=== PATIENT | female | born 1950 | race Caucasian/White ===

== ENCOUNTER 2019-08-26 13:24 | Emergency (ER) | payer MEDICARE ==
--- NOTE | 2019-08-26 13:54 | ER Document Report ---
ED Fall - General Chief Complaint: Facial Injury Stated Complaint: FALL,BODY PAIN Time Seen by Provider: 08/26/19 13:54 Primary Care Provider: HUMA JACOBSON PA [Primary Care Provider] - Follow up as needed Mode of Arrival: Medic Information source: Patient Notes: 69-year-old woman presents to the emergency department with a history of a fall. Apparently tripped and fell forward injuring her face. She denies loss of consciousness or neck pain. She also denies any extremity pain. She is not on a blood thinner and denies dizziness or systemic symptoms. TRAVEL OUTSIDE OF THE [place] IN LAST 30 DAYS: No - Related data Allergies/Adverse Reactions: No Known Allergies Allergy (Unverified 08/26/19 14:38) Past Medical History - General Information source: Patient - Social History Smoking Status: Never Smoker Frequency of alcohol use: None Drug Abuse: None Family History: Reviewed & Not Pertinent Patient has suicidal ideation: No Patient has homicidal ideation: No GI Medical History: Reports: Hx Gastroesophageal Reflux Disease Psychiatric Medical History: Reports: Hx Depression Past Surgical History: Reports: Hx Breast Surgery - reduction, Hx Cholecystectomy, Hx Orthopedic Surgery - L leg jayleen, Hx Tonsillectomy Review of Systems - Review of Systems Notes: REVIEW OF SYSTEMS GENERAL: Negative for any nausea, vomiting, fevers, chills, or weight loss. NEUROLOGIC: Negative for any blurry vision, blind spots, double vision, facial asymmetry, dysphagia, dysarthria, hemiparesis, hemisensory deficits, vertigo, ataxia. HEENT: Negative for any head trauma, neck trauma, neck stiffness, photophobia, phonophobia, sinusitis, rhinitis. CARDIAC: Negative for any chest pain, dyspnea on exertion, paroxysmal nocturnal dyspnea, peripheral edema. PULMONARY: Negative for any shortness of breath, wheezing, COPD, or TB exposure. GASTROINTESTINAL: Negative for any abdominal pain, nausea, vomiting, bright red blood per rectum, melena. GENITOURINARY: Negative for any dysuria, hematuria, incontinence. INTEGUMENTARY: + Forehead abrasion, + nasal lac, + upper lip abrasion RHEUMATOLOGIC: Negative for any joint pains, photosensitive rashes, history of vasculitis or kidney problems. HEMATOLOGIC: Negative for any abnormal bruising, frequent infections or bleeding. Physical Exam - Vital signs Vitals: Temp Pulse Resp BP Pulse Ox 97.8 F 75 20 148/85 H 99 11/09/19 13:44 08/26/19 13:44 08/26/19 13:44 08/26/19 13:44 08/26/19 13:44 Interpretation: Normal - General General appearance: Appears well, Alert - HEENT Head: Abrasions - Forehead superficial abrasion with mild swelling Eyes: Normal Pupils: PERRL Nasal: Other - 2 cm V-shaped laceration to the nasal bridge. Mouth/Lips: Other - Superficial abrasion to the maxillary upper lip region. Epidermis only. - Respiratory Respiratory status: No respiratory distress Chest status: Nontender Breath sounds: Normal Chest palpation: Normal - Cardiovascular Rhythm: Regular Heart sounds: Normal auscultation Murmur: No - Abdominal Inspection: Normal Distension: No distension Bowel sounds: Normal Tenderness: Nontender Organomegaly: No organomegaly - Back Back: Normal, Nontender - Extremities General upper extremity: Normal inspection, Nontender, Normal color, Normal ROM, Normal temperature General lower extremity: Normal inspection, Nontender, Normal color, Normal ROM, Normal temperature, Normal weight bearing. No: Fritz's sign - Neurological Neuro grossly intact: Yes Cognition: Normal Orientation: AAOx4 Nayely Coma Scale Eye Opening: Spontaneous Nayely Coma Scale Verbal: Oriented Nayely Coma Scale Motor: Obeys Commands Nayely Coma Scale Total: 15 Speech: Normal Motor strength normal: LUE, RUE, LLE, RLE Sensory: Normal - Psychological Associated symptoms: Normal affect, Normal mood - Skin Skin Temperature: Warm Skin Moisture: Dry Skin Color: Normal Course - Vital Signs Vital signs: Temp Pulse Resp BP Pulse Ox 98.2 F 71 18 134/65 H 98 08/26/19 16:16 08/26/19 16:16 08/26/19 16:16 08/26/19 16:16 08/26/19 16:16 - Diagnostic Test Radiology reviewed: Image reviewed, Reports reviewed - CT facial bones noncontrast: Chip fracture on the nasal bone otherwise negative. Procedures - Laceration/Wound Repair Face Wound length (cm): 1 Wound's Depth, Shape: Superficial, Flap - 2 cm V-shaped flap on the nasal bridge, bleeding controlled, 1% lidocaine injected after a ChloraPrep cleansing of the area. A total of 3, 5-0 Vicryl sutures were placed with good approximation of the wound. Patient tolerated the procedure well with no complications. Discharge - Discharge Clinical Impression: Contusion of face Qualifiers: Encounter type: initial encounter Qualified Code(s): S00.83XA - Contusion of other part of head, initial encounter Nasal laceration Qualifiers: Encounter type: initial encounter Qualified Code(s): S01.21XA - Laceration without foreign body of nose, initial encounter Fall Qualifiers: Encounter type: initial encounter Qualified Code(s): W19.XXXA - Unspecified fall, initial encounter Condition: Good Disposition: HOME, SELF-CARE Instructions: Antibiotic Ointment Protection ([facility]), Laceration Care ([facility]), Prophylactic Antibiotic ([facility]) Prescriptions: Cephalexin Monohydrate [Keflex 500 mg Capsule] 500 mg PO Q6H 5 Days capsule Referrals: HUMA JACOBSON PA [Primary Care Provider] - Follow up as needed
[2019-08-26] MEDS ORDERED: KETOROLAC TROMETHAMINE 60 MG/2 ML SDV IM ONE (13:56)
[2019-08-26] MEDS ORDERED: LIDOCAINE 1% INJ-PF (10 MG/ML) 30 ML SDV INJ ONE (14:06)
--- NOTE | 2019-08-26 15:11 | RADIOLOGY REPORT (SQ) ---
EXAM DESCRIPTION: CT FACIAL AREA WITHOUT COMPLETED DATE/TIME: 08/26/2019 2:14 pm REASON FOR STUDY: facial injury COMPARISON: None. TECHNIQUE: Noncontrasted images through the facial bones and orbits windowed for bone and soft tissu e. Additional coronal and sagittal reconstructed images reviewed. All images stored on PACS. All CT scanners at this facility use dose modulation, iterative reconstruction, and/or weight based d osing when appropriate to reduce radiation dose to as low as reasonably achievable (ALARA). [facility]: Dose Right [facility]: CareDose [facility]: Dose Right [facility]: Teradose 4D [facility]: [employer] RADIATION DOSE: CT Rad equipment meets quality standard of care and radiation dose reduction techniq ues were employed. CTDIvol: 30.4 mGy. DLP: 616 mGy-cm. mGy. LIMITATIONS: None. FINDINGS: FACIAL BONES: Nondisplaced fracture tip of the nasal bones with soft tissue swelling. ORBITS: Intact. No fracture. Symmetric intact globes and retroorbital soft tissues. PARANASAL SINUSES: Mucosal thickening within the right frontal sinus and right ethmoid sinuses. Muco chuy thickening noted within the right maxillary antra and at the ostia of of right maxillary sinus. INFERIOR BRAIN: Limited view. No acute findings. OTHER: Prominent cervical spondylosis and degenerative disc disease at C5-7. Degenerative anterolist hesis of C4 on C5 and C5 on C6. IMPRESSION: Nondisplaced fractures tip of nasal bone with soft tissue swelling. Otherwise, normal C T of the facial bones. TECHNICAL DOCUMENTATION: JOB ID: [id number] SC-69 Quality ID # [id number]: Final reports with documentation of one or more dose reduction techniques (e.g., Au tomated exposure control, adjustment of the mA and/or kV according to patient size, use of iterative reconstruction technique) 2010 [employer]- All Rights Reserved Reading location - IP/workstation name: [email or web address]
[2019-08-26 16:16] VITALS: BP 134/65
== END 2019-08-26 16:17 | disposition home or self-care (01) ==
LOC: ER 13:24
PROC: 0HQ1XZZ Repair Face Skin, External Approach (ICD-10-PCS; principal; 2019-08-26)
DX: S01.21XA Laceration without foreign body of nose, initial encounter (principal); M79.10 Myalgia, unspecified site; W01.0XXA Fall on same level from slipping, tripping and stumbling without subsequent striking against object, initial encounter
CPT/HCPCS: 99283; 96372; 70486; 12011; J1885; J3490